=== PATIENT | female | born 1980 | race Caucasian/White ===

== ENCOUNTER 2017-04-14 03:42 | Emergency (ER) | payer MEDICAID ==
[~2017-04-14] VITALS: Ht 170.2 cm; Wt 58.1 kg
[2017-04-14] MEDS ORDERED: ONDANSETRON 2MG/ML, 2ML IVPush ONE (05:00)
[2017-04-14] MEDS ORDERED: MORPHINE SULFATE 4 MG/ML, 1ML IVPush PRN (05:00)
[2017-04-14] MEDS ORDERED: SODIUM CHLORIDE 0.9% 1,000ML IVBOLUS ONE (05:00)
[2017-04-14] MEDS ORDERED: KETOROLAC 30 MG/1 ML IM ONE (05:30)
[2017-04-14] MEDS ORDERED: KETOROLAC 30 MG/1 ML ONE (05:36)
[2017-04-14 06:11] LABS: ASPARTATE AMINO TRANSFERASE 13 U/L (15-37); BLOOD UREA NITROGEN 11 mg/dL (7-18)
[2017-04-14 07:01] VITALS: BP 103/54
== END 2017-04-14 07:35 | disposition home or self-care (01) ==
LOC: ED 06:06
DX: B37.3 Candidiasis of vulva and vagina (principal); N93.8 Other specified abnormal uterine and vaginal bleeding; N30.00 Acute cystitis without hematuria; S33.5XXA Sprain of ligaments of lumbar spine, initial encounter; X58.XXXA Exposure to other specified factors, initial encounter; Y93.89 Activity, other specified; Y92.89 Other specified places as the place of occurrence of the external cause; Y99.8 Other external cause status
CPT/HCPCS: 36415; 76830; 80053; 81001; 84703; 85025; 87086; 96372; 99285; J1885

== ENCOUNTER 2017-07-19 20:39 | Emergency (ER) | payer MEDICAID ==
[~2017-07-19] VITALS: Ht 170.2 cm; Wt 51.6 kg
[2017-07-19] MEDS ORDERED: ALBUTEROL SULFATE 2.5 MG/3 ML NPPB ONE (21:30)
[2017-07-19] MEDS ORDERED: ALBUTEROL SULFATE 2.5 MG/3 ML ONE (22:21)
[2017-07-19 22:23] VITALS: BP 117/84
== END 2017-07-19 22:48 | disposition home or self-care (01) ==
LOC: ED 22:42
DX: J20.9 Acute bronchitis, unspecified (principal)
CPT/HCPCS: 71020; 93005; 94640; 99284; J7512; J7613